=== PATIENT | male | born 2000 | race Caucasian/White ===

== ENCOUNTER 2018-03-17 22:38 | Emergency (ER) | payer OTHER ==
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
[2018-03-18 02:06] VITALS: BP 135/81; PULSE 83; RESP 18; TEMP 98.3
== END 2018-03-18 02:06 | disposition home or self-care (01) ==
LOC: EC 22:38
DX: S51.812A Laceration without foreign body of left forearm, initial encounter (principal); F17.200 Nicotine dependence, unspecified, uncomplicated; V18.0XXA Pedal cycle driver injured in noncollision transport accident in nontraffic accident, initial encounter; W25.XXXA Contact with sharp glass, initial encounter; Y93.55 Activity, bike riding; Y92.89 Other specified places as the place of occurrence of the external cause
CPT/HCPCS: 12001; 99282

== ENCOUNTER 2021-01-24 22:59 | Emergency (ER) | payer OTHER ==
--- NOTE | 2021-01-25 00:32 | ED ---
General Adult HPI - General Chief complaint: Skin/Abscess/Foreign Body Stated complaint: Urogenital Time Seen by Provider: 01/25/21 00:18 Source: patient, RN notes reviewed Mode of arrival: ambulatory Limitations: no limitations - History of Present Illness Initial comments: This is a pleasant 20-year-old transgender female comes in complaining of midli ne testicular discoloration. Patient denies any injuries. Patient states he did have a left testicular torsion back in 2019 but did not require surgery and untorsed on its own. Patient is taking estradiol and spironolactone and was started on 2 months ago to help with his transition to female. Patient has a history of appendectomy. Patient denies dysuria or penile discharge. Location: genitals Treatments Prior to Arrival: none - Related Data Home Medications Medication Instructions Recorded Confirmed No Known Home Medications 03/17/18 03/17/18 Allergies Allergy/AdvReac Type Severity Reaction Status Date / Time No Known Allergies Allergy Verified 01/24/21 23:57 Review of Systems ROS Statement: Those systems with pertinent positive or pertinent negative responses have been documented in the HPI. ROS Other: All systems not noted in ROS Statement are negative. Past Medical History Past Medical History: No Reported History History of Any Multi-Drug Resistant Organisms: None Reported Past Surgical History: Appendectomy Additional Past Surgical History / Comment(s): eye surgery Past Psychological History: No Psychological Hx Reported Smoking Status: Vaper Past Alcohol Use History: None Reported Past Drug Use History: Marijuana General Exam Limitations: no limitations General appearance: alert, in no apparent distress Head exam: Present: atraumatic, normocephalic, normal inspection Eye exam: Present: normal appearance, PERRL, EOMI. Absent: scleral icterus, conjunctival injection, periorbital swelling ENT exam: Present: normal exam, normal oropharynx, mucous membranes moist Neck exam: Present: normal inspection, full ROM. Absent: tenderness, meningismus, lymphadenopathy, thyromegaly Respiratory exam: Present: normal lung sounds bilaterally. Absent: respiratory distress, wheezes, rales, rhonchi, stridor Cardiovascular Exam: Present: regular rate, normal rhythm, normal heart sounds. Absent: systolic murmur, diastolic murmur, rubs, gallop, clicks GI/Abdominal exam: Present: soft, normal bowel sounds. Absent: distended, tenderness, guarding, rebound, rigid exam: Present: other (Darkened discoloration midline and right scrotum). Absent: testicular tenderness, urethral discharge, scrotal swelling External exam: Present: normal external exam, ecchymosis. Absent: erythema, swelling, lesions, lacerations Extremities exam: Present: normal inspection, full ROM, normal capillary refill. Absent: tenderness, pedal edema, joint swelling, calf tenderness Back exam: Present: normal inspection, full ROM. Absent: tenderness, CVA tenderness (R), CVA tenderness (L) Neurological exam: Present: alert, oriented X3, CN II-XII intact Psychiatric exam: Present: normal affect, normal mood Skin exam: Present: warm, dry, intact, normal color. Absent: rash Course Vital Signs 01/24/21 23:54 Temperature 98.3 F Pulse Rate 79 Respiratory 20 Rate Blood Pressure 105/68 O2 Sat by Pulse 98 Oximetry Medical Decision Making - Medical Decision Making Ultrasound of the scrotum shows no intrinsic testicular abnormalities and positive flow demonstrated to both testicles. Patient has no testicular pain, no dysuria, no urethral discharge. There is a positive cremasteric reflex bilaterally. Case discussed with Dr. Funes will discharge patient home. Patient to follow up with his own primary doctor in 1 week. Disposition Clinical Impression: Normal testicular exam Disposition: HOME SELF-CARE Condition: Good Instructions (If sedation given, give patient instructions): Ecchymosis (ED) Is patient prescribed a controlled substance at d/c from ED?: No Referrals: Ace Smith MD [Primary Care Provider] - 1-2 days Time of Disposition: 01:24
--- NOTE | 2021-01-25 01:14 | US ---
EXAM: US Scrotum CLINICAL HISTORY: ITS.REASON US Reason: Testicular TECHNIQUE: Real-time ultrasound of the scrotum with color Doppler and image documentation. COMPARISON: No previous studies. FINDINGS: Right testicle: Right testicle measures 4.2 x 3.0 x 2.1 cm. No intrinsic testicular abnormalities. Flow is demonstrated to both testicles. No torsion. Left testicle: Left testicle measures 4.2 x 1.9 x 2.9 cm. Epididymides: Right epididymis measures 0.9 cm. Left epididymis measures 0.9 cm. Scrotum: No hydroceles bilaterally. No varicoceles. IMPRESSION: 1. No intrinsic testicular abnormalities. 2. Flow is demonstrated to both testicles.
[2021-01-25 01:31] VITALS: BP 122/70; PULSE 91; RESP 18; TEMP 98
== END 2021-01-25 01:31 | disposition home or self-care (01) ==
LOC: EC 22:59
DX: Z76.89 Persons encountering health services in other specified circumstances (principal)
CPT/HCPCS: 76870; 93975; 99284

== ENCOUNTER 2021-04-16 10:00 | Observation (INO) | payer OTHER ==
[2021-04-16] MEDS ORDERED: ACETAMINOPHEN TAB 325 MG TAB PO STA (10:31)
--- NOTE | 2021-04-16 10:45 | ED ---
Abdominal Pain HPI - General Chief Complaint: Abdominal Pain Stated Complaint: Constipation, blood in stool Time Seen by Provider: 04/16/21 10:16 Source: patient Mode of arrival: ambulatory Limitations: no limitations - History of Present Illness Initial Comments: 20 year-old male patient presents to the emergency department for evaluation of rectal bleeding and left lower quadrant abdominal pain. Patient states that he has been constipated. He took dulcolax last night and had a large bowel movement. States afterwards he started having rectal bleeding afterwards. States it is dark red in color. 3 episodes since onset. No history of GI bleed. Hx of appendectomy. Denies fever or chills. Does not take any blood thinning medication. Patient denies any recent rash, cough, shortness of breath, chest pain, back pain, numbness, tingling, dizziness, weakness, hematuria, dysuria, urinary urgency, urinary frequency, headache, visual changes, or any other complaints. - Related Data Home Medications Medication Instructions Recorded Confirmed Estradiol [Estrace] 6 mg PO DAILY 04/16/21 04/16/21 Spironolactone 100 mg PO DAILY 04/16/21 04/16/21 Allergies Allergy/AdvReac Type Severity Reaction Status Date / Time No Known Allergies Allergy Verified 04/16/21 11:15 Review of Systems ROS Statement: Those systems with pertinent positive or pertinent negative responses have been documented in the HPI. ROS Other: All systems not noted in ROS Statement are negative. Past Medical History Past Medical History: No Reported History History of Any Multi-Drug Resistant Organisms: None Reported Past Surgical History: Appendectomy Additional Past Surgical History / Comment(s): eye surgery Past Psychological History: No Psychological Hx Reported Smoking Status: Vaper Past Alcohol Use History: None Reported Past Drug Use History: Marijuana General Exam Limitations: no limitations General appearance: alert, in no apparent distress, other (This is a well- developed, well-nourished adult male patient in no acute distress. Vital signs upon presentation are temperature 98.2F, pulse 59, respirations 16, blood pressure 110/71, pulse ox 100% on room air.) Respiratory exam: Present: normal lung sounds bilaterally. Absent: respiratory distress, wheezes, rales, rhonchi, stridor Cardiovascular Exam: Present: regular rate, normal rhythm, normal heart sounds. Absent: systolic murmur, diastolic murmur, rubs, gallop, clicks GI/Abdominal exam: Present: soft, tenderness (left lower quadrant), normal bowel sounds. Absent: distended, guarding, rebound, rigid Neurological exam: Present: alert, oriented X3, CN II-XII intact Psychiatric exam: Present: normal affect, normal mood Skin exam: Present: warm, dry, intact, normal color. Absent: rash Course Vital Signs 04/16/21 10:11 Temperature 98.2 F Pulse Rate 59 L Respiratory 16 Rate Blood Pressure 110/71 O2 Sat by Pulse 100 Oximetry Medical Decision Making - Medical Decision Making 20-year-old male patient presents to the emergency department today for evaluation of lower abdominal pain and rectal bleeding. Physical examination did reveal left lower quadrant tenderness. Labs reviewed and did reveal 12.6 white blood cell count, remainder labs are unremarkable. KUB showed a around density in the abdomen. CT of the pelvis was obtained and did show diffuse colitis from the splenic flexure to the rectum. He'll be admitted for further evaluation of colitis possible ulcerative colitis. Patient's sister does have history of UC. Patient is agreeable with this plan. We will consult GI. Dr. Doshi is accepting. Case discussed with my attending Dr. Hernandez. - Lab Data Result diagrams: 04/16/21 10:43 04/16/21 10:43 Lab Results 04/16/21 04/16/21 04/16/21 Range/Units 10:43 10:43 10:43 WBC 12.6 H (3.8-10.6) k/uL RBC 4.57 (4.30-5.90) m/uL Hgb 14.7 (13.0-17.5) gm/dL Hct 42.5 (39.0-53.0) % MCV 93.0 (80.0-100.0) fL MCH 32.2 (25.0-35.0) pg MCHC 34.6 (31.0-37.0) g/dL RDW 13.0 (11.5-15.5) % Plt Count 212 (150-450) k/uL MPV 8.5 Neutrophils % 84 % Lymphocytes % 9 % Monocytes % 5 % Eosinophils % 1 % Basophils % 0 % Neutrophils # 10.6 H (1.3-7.7) k/uL Lymphocytes # 1.1 (1.0-4.8) k/uL Monocytes # 0.7 (0-1.0) k/uL Eosinophils # 0.1 (0-0.7) k/uL Basophils # 0.0 (0-0.2) k/uL PT 10.1 (9.0-12.0) sec INR 0.9 (<1.2) APTT 23.4 (22.0-30.0) sec Sodium 138 (137-145) mmol/L Potassium 3.9 (3.5-5.1) mmol/L Chloride 108 H (98-107) mmol/L Carbon Dioxide 21 L (22-30) mmol/L Anion Gap 9 mmol/L BUN 10 (9-20) mg/dL Creatinine 0.76 (0.66-1.25) mg/dL Est GFR (CKD-EPI)AfAm >90 (>60 ml/min/1.73 sqM) Est GFR (CKD-EPI)NonAf >90 (>60 ml/min/1.73 sqM) Glucose 117 H (74-99) mg/dL Plasma Lactic Acid Jin (0.7-2.0) mmol/L Calcium 9.5 (8.4-10.2) mg/dL Total Bilirubin 0.5 (0.2-1.3) mg/dL AST 24 (17-59) U/L ALT 15 (4-49) U/L Alkaline Phosphatase 52 (38-126) U/L Total Protein 7.0 (6.3-8.2) g/dL Albumin 4.3 (3.5-5.0) g/dL 04/16/21 Range/Units 12:43 WBC (3.8-10.6) k/uL RBC (4.30-5.90) m/uL Hgb (13.0-17.5) gm/dL Hct (39.0-53.0) % MCV (80.0-100.0) fL MCH (25.0-35.0) pg MCHC (31.0-37.0) g/dL RDW (11.5-15.5) % Plt Count (150-450) k/uL MPV Neutrophils % % Lymphocytes % % Monocytes % % Eosinophils % % Basophils % % Neutrophils # (1.3-7.7) k/uL Lymphocytes # (1.0-4.8) k/uL Monocytes # (0-1.0) k/uL Eosinophils # (0-0.7) k/uL Basophils # (0-0.2) k/uL PT (9.0-12.0) sec INR (<1.2) APTT (22.0-30.0) sec Sodium (137-145) mmol/L Potassium (3.5-5.1) mmol/L Chloride (98-107) mmol/L Carbon Dioxide (22-30) mmol/L Anion Gap mmol/L BUN (9-20) mg/dL Creatinine (0.66-1.25) mg/dL Est GFR (CKD-EPI)AfAm (>60 ml/min/1.73 sqM) Est GFR (CKD-EPI)NonAf (>60 ml/min/1.73 sqM) Glucose (74-99) mg/dL Plasma Lactic Acid Jin 1.8 (0.7-2.0) mmol/L Calcium (8.4-10.2) mg/dL Total Bilirubin (0.2-1.3) mg/dL AST (17-59) U/L ALT (4-49) U/L Alkaline Phosphatase (38-126) U/L Total Protein (6.3-8.2) g/dL Albumin (3.5-5.0) g/dL - Radiology Data Radiology results: report reviewed, image reviewed KUB was obtained. It was reviewed in its entirety. Impression by Dr. Sargent shows a round density at the left paramedian mid abdomen. In absence of any left-sided renal colic or hematuria bowel contents are in position shadows instructed. No evidence for free air or bowel obstruction. No significant stool burden. CT abdomen and pelvis with contrast is obtained. Report was reviewed in its entirety. Impression by Dr. Lyn shows distal long segment colitis from splenic flexure to rectum. Differential includes infectious, inflammatory, and ischemic etiologies. Ulcerative colitis should be considered in patient of this age. Disposition Clinical Impression: Colitis, Lower GI bleed Disposition: ADMITTED IP TO THIS [facility] Condition: Serious Decision to Admit Reason: Admit from EC Decision Date: 04/16/21 Decision Time: 12:52
[2021-04-16 10:58] LABS: Basophils % (A) 0 %; Eosinophils # (A) 0.1 k/uL (0-0.7); Eosinophils % (A) 1 %; HCT 42.5 % (39.0-53.0); HGB 14.7 gm/dL (13.0-17.5); Lymphocytes # (A) 1.1 k/uL (1.0-4.8); Lymphocytes % (A) 9 %; MCH 32.2 pg (25.0-35.0); MCHC 34.6 g/dL (31.0-37.0); Mean Platelet Volume 8.5; Monocytes # (A) 0.7 k/uL (0-1.0); Monocytes % (A) 5 %; Neutrophils # (A) 10.6 k/uL (1.3-7.7); Neutrophils % (A) 84 %; Platelet Count 212 k/uL (150-450); RBC 4.57 m/uL (4.30-5.90); WBC 12.6 k/uL (3.8-10.6)
[2021-04-16 11:05] LABS: INR 0.9 (<1.2); Partial Thromboplastin Time 23.4 sec (22.0-30.0); Prothrombin Time 10.1 sec (9.0-12.0)
--- NOTE | 2021-04-16 11:11 | XR ---
EXAMINATION TYPE: XR KUB DATE OF EXAM: 04/16/2021 Comparison: None Clinical History: 20-year-old male with abdominal pain Findings: Lung bases are clear. No evidence for free intraperitoneal air. No dilated small bowel or air-fluid levels. There is a vague round density left paramedian mid abdomen. No significant stool burden. Impression: 1. A subtle round density within the left paramedian mid abdomen. In the absence of any left-sided re nal colic or hematuria, bowel content or superimposition shadow is suspected. Correlate clinically to exclude the possibility of a renal calculus. 2. No evidence for free air or bowel obstruction. No significant stool burden.
[2021-04-16 11:13] LABS: ALT 15 U/L (4-49); AST 24 U/L (17-59); African American GFR (CKD) >90 (>60 ml/min/1.73 sqM); Albumin 4.3 g/dL (3.5-5.0); Alkaline Phosphatase 52 U/L (38-126); Anion Gap 9 mmol/L; Blood Urea Nitrogen 10 mg/dL (9-20); Calcium 9.5 mg/dL (8.4-10.2); Carbon Dioxide 21 mmol/L (22-30); Chloride 108 mmol/L (98-107); Glucose 117 mg/dL (74-99); Non-African American GFR(CKD) >90 (>60 ml/min/1.73 sqM); Potassium 3.9 mmol/L (3.5-5.1); Sodium 138 mmol/L (137-145); Total Bilirubin 0.5 mg/dL (0.2-1.3)
--- NOTE | 2021-04-16 12:04 | CT ---
EXAMINATION TYPE: CT abdomen pelvis w con DATE OF EXAM: 04/16/2021 COMPARISON: None. HISTORY: bloody stool, constipation CT DLP: 567 mGycm, Automated Exposure Control for Dose Reduction was Utilized. CONTRAST: CT scan of the abdomen and pelvis is performed without oral but with IV Contrast, patient injected wi th 100 mL of Isovue 300. FINDINGS: LUNG BASES: No significant abnormality is appreciated. LIVER/GB: Mild hepatomegaly. PANCREAS: No significant abnormality is seen. SPLEEN: No significant abnormality is seen. ADRENALS: No significant abnormality is seen. KIDNEYS: No significant abnormality is seen. BOWEL: Evaluation bowel suboptimal due to lack of enteric contrast and patient having little intra-ab dominal fat. No suspicious small large bowel dilatation. Moderate to severe wall thickening left colo n greatest near junction of sigmoid colon. Mild to moderate wall thickening in sigmoid colon to rectu m. No free air. No well-formed fluid collection or abscess. PROSTATE/SEMINAL VESICLES: No gross abnormality seen. LYMPH NODES: No greater than 1cm abdominal or pelvic lymph nodes are appreciated. OSSEOUS STRUCTURES: No significant abnormality is seen. OTHER: No significant additional abnormality is seen. IMPRESSION: Distal long segment colitis from splenic flexure to rectum. Differential includes infecti ous, inflammatory, and ischemic etiologies. Ulcerative colitis should be considered in patient of thi s age.
[2021-04-16] MEDS ORDERED: NALOXONE 0.4 MG/ML 1 ML VIAL IV PRN (12:51)
[2021-04-16] MEDS ORDERED: ONDANSETRON 4 MG/2 ML VIAL IVP PRN (13:21)
[2021-04-16] MEDS ORDERED: ACETAMINOPHEN TAB 325 MG TAB PO PRN (13:21)
[2021-04-16] MEDS ORDERED: MORPHINE SULFATE 2 MG/ML SYRINGE IVP PRN (13:21)
--- NOTE | 2021-04-16 13:22 | P.HPIM ---
History of Present Illness H&P Date: 04/16/21 Chief Complaint: Abdominal pain This is a 20-year-old male to female transgender patient that presented to the emergency room with worsening abdominal pain and bloody bowel movement. Patient said that he was having problems with constipation for the past couple of days and yesterday he took a stool softener and subsequently started having she stools that was mixed with bright red blood. He is also describing generalized abdominal pain that he rates as 6 out of 10 in severity but occasionally get worse. Patient denies any nausea or vomiting. Patient said that he usually does not have any problems with his bowel movement and denies any bloody bowel movement in the past. Patient was evaluated in the emergency room and computed tomography scan of the abdomen and pelvis showed evidence of colitis extending from the splenic flexure to the rectum. Patient was never diagnosed with IBD that his sister is known to have ulcerative colitis. He will be admitted to the hospital for further management Review of Systems Review of system: 14 points review of systems were obtained and were negative except to what were mentioned in the HPI. Past Medical History Past Medical History: No Reported History History of Any Multi-Drug Resistant Organisms: None Reported Past Surgical History: Appendectomy Additional Past Surgical History / Comment(s): eye surgery Past Psychological History: No Psychological Hx Reported Smoking Status: Vaper Past Alcohol Use History: None Reported Past Drug Use History: Marijuana Medications and Allergies Home Medications Medication Instructions Recorded Confirmed Type Estradiol [Estrace] 6 mg PO DAILY 04/16/21 04/16/21 History Spironolactone 100 mg PO DAILY 04/16/21 04/16/21 History Allergies Allergy/AdvReac Type Severity Reaction Status Date / Time No Known Allergies Allergy Verified 04/16/21 11:15 Physical Exam Vitals: Vital Signs Temp Pulse Resp BP Pulse Ox 04/16/21 10:11 98.2 F 59 L 16 110/71 100 Intake and Output 04/15/21 04/16/21 04/16/21 22:59 06:59 14:59 Other: Weight 66.134 kg General: The patient is awake and alert, in no distress Eye: there is normal conjunctiva bilaterally. Neck: The neck is supple, there is no JVD. Cardiovascular: Normal S1-S2, no S3-S4, no murmurs. Respiratory: Lungs clear to auscultation bilaterally Gastrointestinal: Abdomen is soft, there is mild tenderness to palpation Musculoskeletal: There is no pedal edema. Neurological:. Speech is normal. Skin: Skin is warm and dry Results CBC & Chem 7: 04/16/21 10:43 04/16/21 10:43 Labs: Abnormal Lab Results - Last 24 Hours (Table) 04/16/21 04/16/21 Range/Units 10:43 10:43 WBC 12.6 H (3.8-10.6) k/uL Neutrophils # 10.6 H (1.3-7.7) k/uL Chloride 108 H (98-107) mmol/L Carbon Dioxide 21 L (22-30) mmol/L Glucose 117 H (74-99) mg/dL Assessment and Plan Assessment: 1. Worsening abdominal pain with bloody diarrhea 2. Acute colitis: Suspected IBD with evidence of colitis extending from the splenic flexure to the rectum noted on computed tomography scan 3. Male to female transgender patient Today, I reviewed his medication list and lab work results. I would obtain CRP, ESR, and lactic acid for further evaluation. GI consulted as well. I would hold off starting any IV steroids at this time. Symptomatic management with pain control and anti-emetic as needed. Continue IV fluid hydration. Clear liquid diet for now.
[2021-04-17 06:36] LABS: African American GFR (CKD) >90 (>60 ml/min/1.73 sqM); Anion Gap 11 mmol/L; Blood Urea Nitrogen 10 mg/dL (9-20); Carbon Dioxide 25 mmol/L (22-30); Chloride 102 mmol/L (98-107); Glucose 94 mg/dL (74-99); Non-African American GFR(CKD) >90 (>60 ml/min/1.73 sqM); Potassium 4.4 mmol/L (3.5-5.1); Sodium 138 mmol/L (137-145)
[2021-04-17] MEDS: SPIRONOLACTONE 25 MG TAB PO SCH (08:49)
[2021-04-17] MEDS: PANTOPRAZOLE 40 MG/10 ML VIAL IVP SCH (08:53)
[2021-04-17 09:51] LABS: Basophils # (A) 0.03 X 10*3/uL (0.00-0.10); Basophils % (A) 0.4 %; Eosinophils % (A) 2.6 %; HCT 47.2 % (39.6-50.0); HGB 15.3 g/dL (13.0-17.0); Lymphocytes # (A) 1.75 X 10*3/uL (0.90-5.00); Lymphocytes % (A) 22.7 %; MCH 30.7 pg (27.0-32.0); MCHC 32.4 g/dL (32.0-37.0); MCV 94.8 fL (80.0-97.0); Mean Platelet Volume 11.2 fL (9.5-12.2); Monocytes % (A) 6.5 %; Neutrophils % (A) 67.4 %; Platelet Count 235 X 10*3/uL (140-440); RBC 4.98 X 10*6/uL (4.40-5.60); RDW 12.4 % (11.5-14.5); WBC 7.71 X 10*3/uL (4.50-10.00)
--- NOTE | 2021-04-17 13:07 | P.PN ---
Subjective Progress Note Date: 04/17/21 Patient is complaining of abdominal pain that he said it's unchanged compared to yesterday. He appeared comfortable when I saw him. No further episode of diarrhea or bloody stools since admission. He is tolerating liquid diet with no difficulty. Objective - Vital Signs Vital signs: Vital Signs Temp 97.4 F L 04/17/21 07:31 Pulse 52 L 04/17/21 07:31 Resp 18 04/17/21 08:00 BP 110/71 04/17/21 07:31 Pulse Ox 100 04/17/21 07:31 Intake & Output 04/16/21 04/17/21 04/17/21 18:59 06:59 18:59 Weight 66.134 kg Other: Voiding Method Toilet Toilet # Voids 2 2 2 - Exam General: The patient is awake and alert, in no distress Eye: there is normal conjunctiva bilaterally. Neck: The neck is supple, there is no JVD. Cardiovascular: Normal S1-S2, no S3-S4, no murmurs. Respiratory: Lungs clear to auscultation bilaterally Gastrointestinal: Abdomen is soft, nontender Musculoskeletal: There is no pedal edema. Neurological:. Speech is normal. Skin: Skin is warm and dry - Labs CBC & Chem 7: 04/17/21 05:46 04/17/21 05:46 Assessment and Plan Assessment: This is a 20-year-old male to female transgender patient that presented to the emergency room with worsening abdominal pain and bloody diarrhea. Patient was evaluated in the ER and admitted to the hospital for further management of medical problems noted below. 1. Acute colitis: Suspected IBD on presentation with evidence of colitis extending from the splenic flexure to the rectum noted on computed tomography scan. CRP and ESR are normal. Awaiting GI evaluation. 2. Male to female transgender patient: Continue home medications Today, I reviewed his medication list and lab work results. Symptomatic management with pain control and anti-emetic as needed.
--- NOTE | 2021-04-17 15:28 | P.CONS ---
History of Present Illness - Reason for Consult Consult date: 04/17/21 GI bleed, colitis Requesting physician: Tiffany Haji - Chief Complaint Abdominal pain, rectal bleeding - History of Present Illness This is a 20 year old patient who presented to the emergency department pain and rectal bleeding. Patient states he has actually had symptoms of abdominal cramping, constipation mixed with diarrhea for over the last one years duration. However yesterday woke up in the middle of the night with bad cramps along his lower abdomen and thought he had to have a bowel movement however he was unable to. The patient later took a Dulcolax and continued to have a dull achy pain throughout abdomen, then had some loose stool which then turned into bloody dark red mixed in his stool and seen in the toilet. Denies any previous rectal ble eding or blood in his stool before. Not on any anticoagulation. Currently is taking hormone replacement therapy as treatment, transitioning gender. No reported bowel movements or rectal bleeding since coming to the hospital. States still having some left lower quadrant discomfort. Denies any nausea or vomiting, denies any fever. No recent travel or sick contacts. The patient's sister does have a diagnosis of ulcerative colitis. No previous history of similar symptoms. No previous EGD or colonoscopy. On presentation to the emergency department had mild leukocytosis with a WBC of 12.7. Today's repeat labs WBC 7, hemoglobin 15, hematocrit 47, platelet count 235,000, total bilirubin 0.5, alkaline phosphatase 52, AST 24, ALT 15. CT of abdomen and pelvis showed distal long segment colitis from splenic flexure to rectum. Differential include infectious, inflammatory, and ischemic etiologies. Ulcerative colitis should be considered and patient of this age. Review of Systems REVIEW OF SYSTEMS: CARDIOPULMONARY: No chest pain or shortness of breath. Gastrointestinal: Abdominal cramping. No nausea or vomiting. No hematemesis, coffee-ground emesis. Rectal bleeding, diarrhea. GENITOURINARY: No dysuria or hematuria. MUSCULOSKELETAL: Reports normal range of motion., Joint pain. SKIN: No rashes. No jaundice. ENDOCRINE: No chills, fevers. No excessive weight gain or loss. No polydipsia or polyuria. PSYCHIATRIC: Unremarkable. NEUROLOGY: No change in mental status. Denies dizziness, headache. ENT: Vision unremarkable. CONSTITUTIONAL: No recent weight loss. No fever, chills, night sweats. Past Medical History Past Medical History: No Reported History History of Any Multi-Drug Resistant Organisms: None Reported Past Surgical History: Appendectomy Additional Past Surgical History / Comment(s): eye surgery Past Psychological History: No Psychological Hx Reported Smoking Status: Vaper Past Alcohol Use History: None Reported Past Drug Use History: Marijuana - Past Family History Sister(s) Family Medical History: GERD/Reflux, GI Bleed Additional Family Medical History / Comment(s): Colits and cystic fibrosis and endometriosis. Medications and Allergies Home Medications Medication Instructions Recorded Confirmed Type Estradiol [Estrace] 6 mg PO DAILY 04/16/21 04/16/21 History Spironolactone 100 mg PO DAILY 04/16/21 04/16/21 History Allergies Allergy/AdvReac Type Severity Reaction Status Date / Time No Known Allergies Allergy Verified 04/16/21 11:15 Physical Exam Vitals: Vital Signs Temp Pulse Pulse Pulse Resp BP BP 04/17/21 07:31 97.4 F L 52 L 17 110/71 04/17/21 03:09 98.2 F 58 L 14 111/65 04/17/21 00:09 67 16 04/16/21 19:08 97.8 F 67 16 108/60 04/16/21 19:00 67 16 04/16/21 14:00 75 18 113/76 04/16/21 13:28 98.6 F 70 17 04/16/21 10:11 98.2 F 59 L 16 110/71 Pulse Ox 04/17/21 07:31 100 04/17/21 03:09 100 04/17/21 00:09 04/16/21 19:08 100 04/16/21 19:00 04/16/21 14:00 100 04/16/21 13:28 96 04/16/21 10:11 100 Intake and Output 04/16/21 04/17/21 04/17/21 22:59 06:59 14:59 Other: Voiding Method Toilet Toilet # Voids 1 2 General appearance: The patient is alert, oriented, appears in no acute distress. HET: Head is normocephalic and atraumatic. Conjunctiva pink. Sclera anicteric. Neck: Supple without lymphadenopathy. Trachea midline. Heart: S1 S2. Regular rate and rhythm. Lungs: Clear to auscultation. Abdomen: Soft, lower quadrant tenderness, nondistended with bowel sounds. No guarding or rigidity. Skin: No rashes. No jaundice. Extremities: Normal skin color and turgor. No pedal edema. Neurological: No focal deficits. Alert and oriented 3.. Results CBC & Chem 7: 04/17/21 05:46 04/17/21 05:46 Labs: Abnormal Lab Results - Last 24 Hours (Table) 04/16/21 04/16/21 Range/Units 10:43 10:43 WBC 12.6 H (3.8-10.6) k/uL Neutrophils # 10.6 H (1.3-7.7) k/uL Chloride 108 H (98-107) mmol/L Carbon Dioxide 21 L (22-30) mmol/L Glucose 117 H (74-99) mg/dL CT scan - abdomen: image reviewed (Distal long segment colitis from splenic flexure to rectum. Differential includes infectious, inflammatory, and ischemic etiologies. Ulcerative colitis should be considered in patient of this age.) Assessment and Plan (1) Colitis Narrative/Plan: 20-year-old patient who presented to the emergency department with complaints of severe abdominal cramping associated with dark red blood in stool and rectal bleeding. Patient states symptoms of constipation/diarrhea and abdominal cramping has been going on for the last 1 year duration. This is the first time of having any blood in the stool or rectal bleeding. No associated nausea or vomiting. No recent travel, antibiotic use, or sick contacts. Patient's sister does have history of ulcerative colitis. No previous EGD or colonoscopy. Afebrile, initially had mild gross cytosis on admission however normal now. Hemoglobin stable at 15. Possible etiologies include infectious, ischemic, or inflammatory. Need to consider possibility of ulcerative colitis especially with a family history. At this time will treat empirically with antibiotics and recommend colonoscopy. Offered to patient that Gen. surgery see patient for possible colonoscopy during this hospitalization as there will be no Urge with gastroenterology this weekend. Patient states like to be discharged if possible and is ready to go as no further symptoms. Recommend outpatient colonoscopy in 3-4 weeks. Current Visit: Yes Status: Acute Code(s): K52.9 - NONINFECTIVE GASTROENTERITIS AND COLITIS, UNSPECIFIED SNOMED Code(s): 42049663 (2) Abdominal pain Current Visit: Yes Status: Acute Code(s): R10.9 - UNSPECIFIED ABDOMINAL PAIN SNOMED Code(s): 98329249 (3) Lower GI bleed Current Visit: Yes Status: Acute Code(s): K92.2 - GASTROINTESTINAL HEMORRHAGE, UNSPECIFIED SNOMED Code(s): 47132439 Plan: 1. Advance to full liquid diet 2. Will start on oral Cipro and Flagyl 3. Discussed with patient that colonoscopy is recommended, as patient's symptom s have improved and has had no further bleeding it would be reasonable to have outpatient colonoscopy in the next 3-4 weeks. However symptoms return there is no gastroenterology coverage this weekend, and may need to consider general surgery consult if warranted by primary medicine. Thank you for allowing us to participate in the care of the patient, the GI service will sign off, gastroenterology will not be available at the hospital this weekend and if further evaluation by gastroenterology is required the patient will need transfer as per the primary team's discretion. Dr. Sanders I agree with the dictator's note, documented as a scribe by Cheryl Chang.
[2021-04-17] MEDS: CIPROFLOXACIN HCL 500 MG TAB PO SCH ×2 (17:00→23:42)
[2021-04-17] MEDS: metroNIDAZOLE 500 MG TAB PO SCH ×2 (17:07→23:42)
[2021-04-18 07:31] VITALS: BP 97/62; RESP 17; TEMP 98.3
[2021-04-18] MEDS: PANTOPRAZOLE 40 MG/10 ML VIAL IVP SCH (08:50)
[2021-04-18] MEDS: SPIRONOLACTONE 25 MG TAB PO SCH (08:50)
[2021-04-18] MEDS: metroNIDAZOLE 500 MG TAB PO SCH (08:51)
[2021-04-18] MEDS: CIPROFLOXACIN HCL 500 MG TAB PO SCH (08:51)
[2021-04-18 09:36] VITALS: PULSE 55
--- NOTE | 2021-04-18 12:26 | P.DS ---
Providers Date of admission: 04/16/21 12:59 Expected date of discharge: 04/18/21 Attending physician: Rachel Doshi Consults: 04/16/21 12:51 Consult Physician Routine Consulting Provider: Antonio Sanders Consult Reason/Comments: GI bleed; colitis Do you want consulting provider notified?: Yes Primary care physician: Stated None Hospital Course: This is a 20-year-old male to female transgender patient that presented to the emergency room with worsening abdominal pain and bloody diarrhea. Patient was evaluated in the ER and admitted to the hospital for further management of medical problems noted below. 1. Acute colitis: Suspected IBD on presentation with evidence of colitis extending from the splenic flexure to the rectum noted on computed tomography scan. CRP and ESR are normal. Patient was seen and evaluated by GI. Plan for colonoscopy outpatient in 4-6 weeks. We finish 7 days course of antibiotic with Cipro and Flagyl. 2. Male to female transgender patient: Continue home medications Patient was seen and evaluated by me on the day of discharge. He denies any abdominal pain. No bowel movement since admission. Abdomen is soft and nontender. Patient would be discharged home in a stable condition. Follow-up with GI as directed for outpatient colonoscopy. Patient Condition at Discharge: Fair Plan - Discharge Summary Discharge Rx Participant: No New Discharge Prescriptions: New Ciprofloxacin HCl [Cipro] 500 mg PO BID #12 tab metroNIDAZOLE [Flagyl] 500 mg PO TID #18 tab Continue Spironolactone 100 mg PO DAILY Estradiol [Estrace] 6 mg PO DAILY Discharge Medication List Estradiol [Estrace] 6 mg PO DAILY 04/16/21 [History] Spironolactone 100 mg PO DAILY 04/16/21 [History] Ciprofloxacin HCl [Cipro] 500 mg PO BID #12 tab 04/18/21 [Rx] metroNIDAZOLE [Flagyl] 500 mg PO TID #18 tab 04/18/21 [Rx] Follow up Appointment(s)/Referral(s): Esther Belcher MD [STAFF PHYSICIAN] - 1 Week (Call office for outpatient colonoscopy on Tuesday) None,Stated [Primary Care Provider] - 1-2 days Patient Instructions/Handouts: Rectal Bleeding (DC) Discharge/Stand Alone Forms: Work/School Release Discharge Disposition: HOME SELF-CARE
== END 2021-04-18 12:21 | disposition home or self-care (01) ==
LOC: EC 10:00 → 6NMEDSUR 12:59 → 4SSUR 13:51
PROVIDERS: ADMIT Internal Medicine; ATTEND Internal Medicine
DX: K52.9 Noninfective gastroenteritis and colitis, unspecified (principal); F64.9 Gender identity disorder, unspecified; K59.00 Constipation, unspecified; Z79.890 Hormone replacement therapy; Z90.49 Acquired absence of other specified parts of digestive tract; F17.290 Nicotine dependence, other tobacco product, uncomplicated; Z86.59 Personal history of other mental and behavioral disorders; Z83.79 Family history of other diseases of the digestive system; Z83.2 Family history of diseases of the blood and blood-forming organs and certain disorders involving the immune mechanism
CPT/HCPCS: 99285; 96376; 96374; 36415; 80053; 80048; 85652; 83605; 85025 ×2; 85610; 85730; 86140; 74018; 74177; G0378 ×4; C9113 ×2; Q9967

== ENCOUNTER 2021-11-19 18:30 | Emergency (ER) | payer OTHER ==
[2021-11-19 19:01] VITALS: RESP 18
--- NOTE | 2021-11-19 22:48 | ED ---
Psych HPI - General Chief Complaint: Psychiatric Symptoms Stated Complaint: Mental Health Time Seen by Provider: 11/19/21 21:41 Source: patient, RN notes reviewed, old records reviewed Mode of arrival: ambulatory Limitations: no limitations - History of Present Illness Initial Comments: This is a 21-year-old male to the emergency department today. Patient presents today for evaluation regards to psychiatric illness, depression. No drugs or alcohol abuse. Patient does admit to been cutting her groin MD Complaint: feels depressed -: hour(s) Associated Psychiatric Symptoms: depression History of same: Yes Quality: constant, intermittent Improves With: none Worsens With: none Context: significant life stressor Associated Symptoms: denies other symptoms Treatments Prior to Arrival: placed on mental health hold If Self Harm: admits thoughts of self harm - Related Data Home Medications Medication Instructions Recorded Confirmed Spironolactone 100 mg PO DAILY 04/16/21 11/24/21 estradioL [estradioL (Twice 2 patch TRANSDERM WESA 11/19/21 11/24/21 Weekly) 0.1 mg Patch] Previous Rx's Medication Instructions Recorded Bacitracin Zinc/Polymyxin B 1 applic TOPICAL BID #1 gm 11/27/21 [Bacitracin-Polymyxin Ointment] Nicotine 14Mg/24Hr Patch [Habitrol] 1 patch TRANSDERM DAILY 14 Days 11/27/21 patch busPIRone HCl [Buspar] 10 mg PO BID 30 Days tab 11/27/21 lamoTRIgine [LaMICtal] 50 mg PO BID 30 Days tab 11/27/21 traZODone HCL [Desyrel] 100 mg PO HS 30 Days tab 11/27/21 Allergies Allergy/AdvReac Type Severity Reaction Status Date / Time No Known Allergies Allergy Verified 11/24/21 13:56 Review of Systems ROS Statement: Those systems with pertinent positive or pertinent negative responses have been documented in the HPI. ROS Other: All systems not noted in ROS Statement are negative. Past Medical History Past Medical History: No Reported History History of Any Multi-Drug Resistant Organisms: None Reported Past Surgical History: Appendectomy Additional Past Surgical History / Comment(s): eye surgery Past Psychological History: Anxiety, Depression Smoking Status: Vaper Past Alcohol Use History: None Reported Past Drug Use History: Marijuana - Past Family History Sister(s) Family Medical History: GERD/Reflux, GI Bleed Additional Family Medical History / Comment(s): Colits and cystic fibrosis and endometriosis. General Exam Limitations: no limitations General appearance: alert, in no apparent distress Head exam: Present: atraumatic, normocephalic, normal inspection Eye exam: Present: normal appearance, PERRL, EOMI. Absent: scleral icterus, conjunctival injection, periorbital swelling ENT exam: Present: normal exam, mucous membranes moist Neck exam: Present: normal inspection. Absent: tenderness, meningismus, lymphadenopathy Respiratory exam: Present: normal lung sounds bilaterally. Absent: respiratory distress, wheezes, rales, rhonchi, stridor Cardiovascular Exam: Present: regular rate, normal rhythm, normal heart sounds. Absent: systolic murmur, diastolic murmur, rubs, gallop, clicks GI/Abdominal exam: Present: soft, normal bowel sounds. Absent: distended, tenderness, guarding, rebound, rigid Extremities exam: Present: normal inspection, full ROM, normal capillary refill. Absent: tenderness, pedal edema, joint swelling, calf tenderness Back exam: Present: normal inspection Neurological exam: Present: alert, oriented X3, CN II-XII intact Psychiatric exam: Present: normal affect, normal mood Skin exam: Present: warm, dry, intact, normal color. Absent: rash Course Vital Signs 11/19/21 11/20/21 18:57 01:58 Temperature 98.1 F 98.5 F Pulse Rate 103 H 74 Respiratory 18 18 Rate Blood Pressure 114/78 127/81 O2 Sat by Pulse 99 98 Oximetry - Reevaluation(s) Reevaluation #1: 11/19/2021 Medical record is reviewed medical clear for psychiatric evaluation Medical Decision Making - Medical Decision Making 21 male to the emergency department for psychiatric evaluation. Patient does have some self cutting a superficial. Patient is depressed and can be discharged home Disposition Clinical Impression: Depression Disposition: HOME SELF-CARE Condition: Fair Instructions (If sedation given, give patient instructions): Depression (ED) Is patient prescribed a controlled substance at d/c from ED?: No Referrals: Jenelle Dacosta MD [Primary Care Provider] - 1-2 days
[2021-11-20 01:59] VITALS: BP 127/81; PULSE 74; TEMP 98.5
== END 2021-11-20 01:59 | disposition home or self-care (01) ==
LOC: EC 18:30
DX: F32.A Depression, unspecified (principal); F17.290 Nicotine dependence, other tobacco product, uncomplicated
CPT/HCPCS: 82075; 99283

== ENCOUNTER 2021-11-24 12:29 | Inpatient (IN) | payer MEDICAID, OTHER ==
--- NOTE | 2021-11-24 13:32 | ED ---
General Adult HPI - General Chief complaint: Psychiatric Symptoms Stated complaint: Mental health Time Seen by Provider: 11/24/21 13:01 Source: patient, RN notes reviewed, old records reviewed Mode of arrival: ambulatory Limitations: no limitations - History of Present Illness Initial comments: Patient is a 21-year-old male transitioning to female because by is a who presents emergency Department following a suicide attempt last week. Patient was evaluated by a physician in the emergency department last week, and ultimately discharged home. Patient states that he then used a knife to cut his right thigh as well as his right groin. He states he considered cutting his right femoral artery or vein. Denies succeeding in doing so. Was seen by his psychiatrist at [facility] today, and sent over to the emergency department for evaluation, likely requiring admission. States he is on Zoloft but states it doesn't seem to be helping. Endorses a lot of stress lately. Denies any homicidal ideations, attempts. Denies any visual or auditory hallucinations. Has no other acute complaints at this time. The wound did bleed some last week but it stopped on its own. Denies any sensory deficits in the right leg. Is able to ambulate without difficulty. No other acute complaints at this time. - Related Data Home Medications Medication Instructions Recorded Confirmed Spironolactone 100 mg PO DAILY 04/16/21 11/24/21 Sertraline [Zoloft] 50 mg PO HS 11/19/21 11/24/21 estradioL [estradioL (Twice 2 patch TRANSDERM WESA 11/19/21 11/24/21 Weekly) 0.1 mg Patch] Allergies Allergy/AdvReac Type Severity Reaction Status Date / Time No Known Allergies Allergy Verified 11/24/21 13:56 Review of Systems ROS Statement: Those systems with pertinent positive or pertinent negative responses have been documented in the HPI. Review of Systems: CONST: Denies fever EYES: Denies blurry vision ENT: Denies nasal congestion C/V: Denies Chest pain RESP: Denies shortness of breath GI: Denies abdominal pain : Denies dysuria SKIN: Endorses superficial lacerations to the right thigh MSK: Denies joint pain. NEURO: Denies headache PSYCH: Denies homicidal ideations/plans/attempts. Denies visual or auditory hallucinations. He endorses suicidal ideations, plans, temp last week with an X-Acto knife. ROS Other: All systems not noted in ROS Statement are negative. Past Medical History Past Medical History: No Reported History History of Any Multi-Drug Resistant Organisms: None Reported Past Surgical History: Appendectomy Additional Past Surgical History / Comment(s): eye surgery Past Psychological History: Anxiety, Depression Smoking Status: Vaper Past Alcohol Use History: None Reported Past Drug Use History: Marijuana - Past Family History Sister(s) Family Medical History: GERD/Reflux, GI Bleed Additional Family Medical History / Comment(s): Colits and cystic fibrosis and endometriosis. General Exam - General Exam Comments Initial Comments: General: Appears in no acute distress. HEAD: Normal with no signs of head trauma. EYES: PERRLA, EOMI, conjunctiva normal, no discharge. ENT: Hearing grossly intact, normal oropharynx. RESPIRATORY: Clear breath sounds bilaterally. No wheezes, rales, or rhonchi. C/V: Regular rate and rhythm. S1 and S2 auscultated, no edema, peripheral pulses 2+ and intact throughout ABD: Abd is soft, nontender, nondistended EXT: Normal range of motion, no obvious deformity SKIN: Superficial lacerations to the anterior right thigh and very stages of healing. It self attempts at injuring. Patient also has a simple laceration located in the right groin. Good 2+ femoral pulse as well as distal PT and DP pulses in the right leg. NEURO: Alert and oriented x 4. Cranial nerves II-XII intact. No focal sensory or strength deficits. Able to ambulate without difficulty. Limitations: no limitations Course Vital Signs 11/24/21 12:40 Temperature 98.2 F Pulse Rate 96 Respiratory 18 Rate Blood Pressure 113/76 O2 Sat by Pulse 98 Oximetry Medical Decision Making - Medical Decision Making Based on the patient's presentation and physical exam, I believe the patient requires psychiatric evaluation. She is having suicidal ideations as well as an attempt last week. She was sent from [facility] for evaluation and I suspect admission. I do not believe that the patient requires any laboratory studies or imaging at this time, but we will obtain a PSA screening BAT as well as drug screen. BAT is 0. Drug screen is pending. Patient is medically cleared for evaluation by psychiatry at this time. Suicide precautions as well as constant sitter are ordered. Patient is medically cleared at this time. Disposition is pending psychiatric evaluation. EPS is notified.Patient's UDS revealed marijuana. Covid is negative. Psychiatry evaluated the patient and determined that the patient needs inpatient psychiatric criteria. Patient was therefore admitted in stable condition to inpatient psychiatry. - Lab Data Lab Results 11/24/21 11/24/21 Range/Units 13:20 13:29 Urine Opiates Screen Not Detected (NotDetected) Ur Oxycodone Screen Not Detected (NotDetected) Urine Methadone Screen Not Detected (NotDetected) Ur Propoxyphene Screen Not Detected (NotDetected) Ur Barbiturates Screen Not Detected (NotDetected) U Tricyclic Antidepress Not Detected (NotDetected) Ur Phencyclidine Scrn Not Detected (NotDetected) Ur Amphetamines Screen Not Detected (NotDetected) U Methamphetamines Scrn Not Detected (NotDetected) U Benzodiazepines Scrn Not Detected (NotDetected) Urine Cocaine Screen Not Detected (NotDetected) U Marijuana (THC) Screen Detected H (NotDetected) Coronavirus (PCR) Not Detected (Not Detectd) Disposition Clinical Impression: Suicidal ideation, Encounter for psychiatric assessment Disposition: ADMITTED IP TO THIS [facility] Condition: Stable Referrals: Jenelle Dacosta MD [Primary Care Provider] - 1-2 days
[2021-11-24 14:15] LABS: Amphetamine Screen,Urine Not Detected (NotDetected); Barbiturate Screen,Urine Not Detected (NotDetected); Benzodiazepines Screen,Urine Not Detected (NotDetected); Cocaine Screen,Urine Not Detected (NotDetected); Methadone Screen, Urine Not Detected (NotDetected); Opiate Screen,Urine Not Detected (NotDetected); Oxycodone Screen, Urine Not Detected (NotDetected); Phencyclidine Screen,Urine Not Detected (NotDetected); Tricyclic Antidepressant,Urine Not Detected (NotDetected); Urn Cannabinoid Scrn Detected (NotDetected)
[2021-11-24] MEDS ORDERED: MAGNESIUM HYDROXIDE 2,400 MG/10 ML CUP PO PRN (21:16)
[2021-11-24] MEDS ORDERED: MAG HYDROX/AL HYDROX/SIMETH 30 ML CUP PO PRN (21:16)
[2021-11-24] MEDS ORDERED: HALOPERIDOL LACTATE 5 MG/ML 1 ML VIAL IM PRN (21:16)
[2021-11-24] MEDS ORDERED: ACETAMINOPHEN TAB 325 MG TAB PO PRN (21:16)
[2021-11-24] MEDS ORDERED: LORazepam 2 MG/ML INJ IM PRN (21:20)
[2021-11-24] MEDS ORDERED: haloperidoL 5 MG TAB PO PRN (21:20)
[2021-11-24 21:57] LABS: Appearance,Urine Clear (Clear); Bilirubin,Urine Negative (Negative); Blood,Urine Negative (Negative); Color,Urine Yellow; Glucose,Urine (UA) Negative (Negative); Ketones,Urine Negative (Negative); Leukocyte Esterase,Urine Negative (Negative); Nitrite,Urine Negative (Negative); Protein,Urine Negative (Negative); Specific Gravity,Urine 1.018 (1.001-1.035)
[2021-11-24] MEDS: LORazepam 1 MG TAB PO PRN (23:22)
[2021-11-25] MEDS: NICOTINE 14MG/24HR PATCH TRANSDERM SCH (08:48)
[2021-11-25] MEDS: SPIRONOLACTONE 25 MG TAB PO SCH (08:49)
[2021-11-25] MEDS ORDERED: ESTRADIOL TRANSDERM SCH (09:00)
[2021-11-25 10:35] LABS: Basophils % (A) 0 %; Eosinophils # (A) 0.2 k/uL (0-0.7); Eosinophils % (A) 3 %; HCT 46.5 % (39.0-53.0); HGB 15.2 gm/dL (13.0-17.5); Lymphocytes # (A) 1.2 k/uL (1.0-4.8); Lymphocytes % (A) 19 %; MCH 30.6 pg (25.0-35.0); MCHC 32.7 g/dL (31.0-37.0); MCV 93.4 fL (80.0-100.0); Mean Platelet Volume 8.7; Monocytes # (A) 0.4 k/uL (0-1.0); Monocytes % (A) 6 %; Neutrophils # (A) 4.5 k/uL (1.3-7.7); Neutrophils % (A) 70 %; Platelet Count 213 k/uL (150-450); RBC 4.98 m/uL (4.30-5.90); WBC 6.4 k/uL (3.8-10.6)
[2021-11-25 10:53] LABS: ALT 13 U/L (4-49); AST 22 U/L (17-59); African American GFR (CKD) >90 (>60 ml/min/1.73 sqM); Albumin 4.7 g/dL (3.5-5.0); Alkaline Phosphatase 57 U/L (38-126); Anion Gap 9 mmol/L; Blood Urea Nitrogen 12 mg/dL (9-20); Calcium 9.9 mg/dL (8.4-10.2); Carbon Dioxide 28 mmol/L (22-30); Chloride 103 mmol/L (98-107); Non-African American GFR(CKD) >90 (>60 ml/min/1.73 sqM); Potassium 4.1 mmol/L (3.5-5.1); Sodium 140 mmol/L (137-145); Total Protein 7.9 g/dL (6.3-8.2)
[2021-11-25 11:02] LABS: Glucose 46 mg/dL (74-99)
[2021-11-25 11:06] LABS: Glucose,Whole Blood 94 mg/dL (75-99)
--- NOTE | 2021-11-25 11:34 | P.HP ---
Psychiatric H&P - . H&P Date: 11/25/21 History & Physical: Allergies Allergy/AdvReac Type Severity Reaction Status Date / Time No Known Allergies Allergy Verified 11/24/21 13:56 Vital Signs Temp 97.8 F 11/25/21 08:51 Pulse 108 H 11/25/21 08:51 Resp 18 11/24/21 20:10 BP 131/68 11/25/21 08:51 Pulse Ox 98 11/24/21 12:40 Intake & Output 11/24/21 11/25/21 11/25/21 18:59 06:59 18:59 Weight 66.678 kg 64.3 kg Laboratory Last Values WBC 6.4 k/uL (3.8-10.6) 11/25/21 09:44 RBC 4.98 m/uL (4.30-5.90) 11/25/21 09:44 Hgb 15.2 gm/dL (13.0-17.5) 11/25/21 09:44 Hct 46.5 % (39.0-53.0) 11/25/21 09:44 MCV 93.4 fL (80.0-100.0) 11/25/21 09:44 MCH 30.6 pg (25.0-35.0) 11/25/21 09:44 MCHC 32.7 g/dL (31.0-37.0) 11/25/21 09:44 RDW 13.0 % (11.5-15.5) 11/25/21 09:44 Plt Count 213 k/uL (150-450) 11/25/21 09:44 MPV 8.7 11/25/21 09:44 Neutrophils % 70 % 11/25/21 09:44 Lymphocytes % 19 % 11/25/21 09:44 Monocytes % 6 % 11/25/21 09:44 Eosinophils % 3 % 11/25/21 09:44 Basophils % 0 % 11/25/21 09:44 Neutrophils # 4.5 k/uL (1.3-7.7) 11/25/21 09:44 Lymphocytes # 1.2 k/uL (1.0-4.8) 11/25/21 09:44 Monocytes # 0.4 k/uL (0-1.0) 11/25/21 09:44 Eosinophils # 0.2 k/uL (0-0.7) 11/25/21 09:44 Basophils # 0.0 k/uL (0-0.2) 11/25/21 09:44 Sodium 140 mmol/L (137-145) 11/25/21 09:44 Potassium 4.1 mmol/L (3.5-5.1) 11/25/21 09:44 Chloride 103 mmol/L (98-107) 11/25/21 09:44 Carbon Dioxide 28 mmol/L (22-30) 11/25/21 09:44 Anion Gap 9 mmol/L 11/25/21 09:44 BUN 12 mg/dL (9-20) 11/25/21 09:44 Creatinine 0.93 mg/dL (0.66-1.25) 11/25/21 09:44 Est GFR (CKD-EPI)AfAm >90 (>60 ml/min/1.73 sqM) 11/25/21 09:44 Est GFR (CKD-EPI)NonAf >90 (>60 ml/min/1.73 sqM) 11/25/21 09:44 Glucose 46 mg/dL (74-99) L* 11/25/21 09:44 POC Glucose (mg/dL) 94 mg/dL (75-99) 11/25/21 11:04 POC Glu Ambulance Operations Supervisor ID Giselle Crabtree 11/25/21 11:04 Calcium 9.9 mg/dL (8.4-10.2) 11/25/21 09:44 Total Bilirubin 1.0 mg/dL (0.2-1.3) 11/25/21 09:44 AST 22 U/L (17-59) 11/25/21 09:44 ALT 13 U/L (4-49) 11/25/21 09:44 Alkaline Phosphatase 57 U/L (38-126) 11/25/21 09:44 Total Protein 7.9 g/dL (6.3-8.2) 11/25/21 09:44 Albumin 4.7 g/dL (3.5-5.0) 11/25/21 09:44 TSH 0.809 mIU/L (0.465-4.680) 11/25/21 09:44 Urine Color Yellow 11/24/21 13:29 Urine Appearance Clear (Clear) 11/24/21 13:29 Urine pH 7.0 (5.0-8.0) 11/24/21 13:29 Ur Specific [place] 1.018 (1.001-1.035) 11/24/21 13:29 Urine Protein Negative (Negative) 11/24/21 13:29 Urine Glucose (UA) Negative (Negative) 11/24/21 13:29 Urine Ketones Negative (Negative) 11/24/21 13:29 Urine Blood Negative (Negative) 11/24/21 13:29 Urine Nitrite Negative (Negative) 11/24/21 13:29 Urine Bilirubin Negative (Negative) 11/24/21 13:29 Urine Urobilinogen 2.0 mg/dL (<2.0) 11/24/21 13:29 Ur Leukocyte Esterase Negative (Negative) 11/24/21 13:29 Urine Opiates Screen Not Detected (NotDetected) 11/24/21 13:29 Ur Oxycodone Screen Not Detected (NotDetected) 11/24/21 13:29 Urine Methadone Screen Not Detected (NotDetected) 11/24/21 13:29 Ur Propoxyphene Screen Not Detected (NotDetected) 11/24/21 13:29 Ur Barbiturates Screen Not Detected (NotDetected) 11/24/21 13:29 U Tricyclic Antidepress Not Detected (NotDetected) 11/24/21 13:29 Ur Phencyclidine Scrn Not Detected (NotDetected) 11/24/21 13:29 Ur Amphetamines Screen Not Detected (NotDetected) 11/24/21 13:29 U Methamphetamines Scrn Not Detected (NotDetected) 11/24/21 13:29 U Benzodiazepines Scrn Not Detected (NotDetected) 11/24/21 13:29 Urine Cocaine Screen Not Detected (NotDetected) 11/24/21 13:29 U Marijuana (THC) Screen Detected (NotDetected) H 11/24/21 13:29 Coronavirus (PCR) Not Detected (Not Detectd) 11/24/21 13:20 11/25/21 11:27 IDENTIFYING DATA: Patient is a 21-year-old male transitioning to female, currently lives with his mother and stepfather and their kids and a house. She currently works in a gas station. HPI: Patient presented to the hospital yesterday and was admitted for suicidal ideations, cutting behavior and depression. She was admitted voluntarily to the mental health unit and agreeable to speak to program writer today. Patient states that she has been "stressed from life in general" and claims that she may have a history of bipolar disorder however is not diagnosed. She states that she has been tried on Zoloft for the past 3 weeks by her PCP however claims that she feels she has been having her mood swings more and feeling unwell and generally "crashes into a deep depression". She states that she did not want to go home after work last Tuesday and states that she went to a bar and then began feeling depressed and began cutting herself at home after being intoxicated. She states that she woke up the next day and felt more depressed and did the same thing after being intoxicated. She states that she started going after her femoral artery and claims that she cut fairly deep. She states that she was trying to kill herself and came to the hospital over the weekend however was "turned away" and went home. She states that she called her PCP and try to get an early appointment however the primary care doctor referred her back to the hospital. She states that bipolar disorder runs in her family. She states that she has had manic episodes in the past and has been feeling "euphoric" at times. She states that her sleep has been on and off. Claims to have a poor appetite. She states that she has been on estrogen for over a year now. Patient denies any current suicidal or homicidal ideations intent or plan. At this time patient denies any auditory or visual hallucinations. Patient denies any flight of ideas racing thoughts and increased in goal directed behavior. Patient admits to using cigarettes daily, binge drinking alcohol, and quit marijuana use about 3 weeks ago. UDS is positive for THC. PAST PSYCHIATRIC HISTORY: Patient states that she has a history of depression and bipolar disorder. She claims that she has been on latuda, Abilify, Zoloft in the past and has had bad reactions to them. She states that she has been hospitalized several times in the past, she recalls being hospitalized at [facility] in 2015 and also most recently at [facility] in [place]. Patient denies any psychiatric outpatient follow-up. She states that she has had several suicide attempts in the past and cutting behavior. PMH: As per ER note. ALLERGIES: as per EMR CHEMICAL DEPENDENCY HISTORY: as per HPI FAMILY PSYCHIATRIC/SUBSTANCE USE HISTORY: Claims that bipolar runs strongly in her family. SOCIAL HISTORY: Patient was born and raised in [facility] and also [facility]. She states that she currently lives with her mother stepfather and also their kids in the house. She works at a gas station. She states that she was mainly homeschooled growing up and ended up dropping out initially however returning back for her GED. She states that she does not have any legal history. MENTAL STATUS EXAM: General Appearance: Patient appears to be tall, thin, long hair, wearing glasses, stated age is alert, directable, and attempts to cooperate. Patient appears to have poor hygiene and grooming. Behavior: Patient is seated without any agitated behavior. Constricted, attempts to cooperate. Speech: Patient's speech is fluent and nonpressured. Soft tone. Mood/Affect: Patient reports their mood is depressed, affect is congruent and constricted. Suicidality/Homicidality: Patient denies having any homicidal ideation intent or plan. Denies any suicidal ideations intent or plan Perceptions: Patient denies any visual hallucinations and denies any auditory hallucinations Though content/process: There is no evidence of any delusional thought content and thought process is linear and goal-directed. Memory and concentration: AOX3, grossly intact for the purposes of this session. Can spell "WORLD" backwards Judgment and insight: poor STRENGTHS/WEAKNESSES: strength is that patient is resilient. Weakness is that patient has poor judgment and is impulsive INTELLECT: average IMPRESSIONS: Bipolar disorder, current episode depressed Anxiety disorder unspecified, rule out PTSD Cannabis use disorder mild Alcohol abuse Self harming behavior Nicotine dependence PLAN: -Patient is admitted under voluntary status to MHU for stabilization of psychiatric symptoms and safety. Patient has signed adult voluntary form and medication consent and is placed in patient's chart. -Medications : Will start patient on Lamictal 25 mg twice a day for mood stabilization/depression with plan to titrate up. Orchestra Conductor spoke with patient in detail about the potential for a rash and to monitor her skin, patient verbally understood and agreed. Trazodone 50 mg daily at bedtime for insomnia/mood. -Ativan and Haldol PRN for agitation/aggression -Patient was counselled on substance abuse and desired to cut back on use -Patient was informed of the risks, benefits and side effects of the medication and patient verbally consented to taking the medications. Patient signed med consent form and was placed in chart. -Internal Medicine consult to perform medical evaluation and physical. Evaluating cuts aswell. -NRT - nicotine patch -SW on board for discharge planning. Encourage patient to participate in groups to work on coping skills.
--- NOTE | 2021-11-25 11:45 | P.CONS ---
History of Present Illness - Reason for Consult Consult date: 11/25/21 Medical Management Requesting physician: Mc Hager - Chief Complaint Depression suicidal ideation - History of Present Illness This is a 21-year-old patient who presented to the ER with concerns of increased depression and suicidal ideation. She reports that they have had increase stress leading to increased depression and suicidal behavior. Patient reports that she began cutting her leg the other day trying to commit suicide. Patient is currently transitioning from male to female. Additional medical history includes appendectomy anxiety depression. Patient also reports she smokes personally Pack cigarettes per day. Occasional marijuana use and occasional alcohol use. Patient reports that he was recently started on Zoloft. Patient denies any recent illness or infection. At this time patient is calm and answers questions appropriately. Patient denies chest pain or shortness of breath. Patient denies nausea vomiting or diarrhea. Patient denies any urinary burning or frequency. Patient's blood sugar on blood work this a.m. low at 46. Patient denies any medications that would lower blood sugar. Repeat blood sugar 94. Patient has multiple superficial cuts to right upper leg. Will order bacitracin to be applied. Review of Systems please refer to HPI otherwise unremarkable Past Medical History Past Medical History: No Reported History History of Any Multi-Drug Resistant Organisms: None Reported Past Surgical History: Appendectomy Additional Past Surgical History / Comment(s): eye surgery Past Anesthesia/Blood Transfusion Reactions: No Reported Reaction Past Psychological History: Anxiety, Depression Smoking Status: Vaper Past Alcohol Use History: Occasional Past Drug Use History: Marijuana - Past Family History Sister(s) Family Medical History: GERD/Reflux, GI Bleed Additional Family Medical History / Comment(s): Colits and cystic fibrosis and endometriosis. Medications and Allergies Home Medications Medication Instructions Recorded Confirmed Type Spironolactone 100 mg PO DAILY 04/16/21 11/24/21 History Sertraline [Zoloft] 50 mg PO HS 11/19/21 11/24/21 History estradioL [estradioL (Twice 2 patch TRANSDERM WESA 11/19/21 11/24/21 History Weekly) 0.1 mg Patch] Allergies Allergy/AdvReac Type Severity Reaction Status Date / Time No Known Allergies Allergy Verified 11/24/21 13:56 Physical Exam Vitals: Vital Signs Temp Pulse Pulse Resp BP BP Pulse Ox 11/25/21 08:51 97.8 F 108 H 131/68 11/24/21 20:10 99.1 F 88 18 125/78 11/24/21 12:40 98.2 F 96 18 113/76 98 Intake and Output 11/24/21 11/25/21 11/25/21 22:59 06:59 14:59 Other: Weight 64.3 kg Head normocephalic Neck supple Lungs clear to auscultation bilaterally no wheezing or crackles Heart regular rate and rhythm S1-S2, no rub or gallop Abdomen is soft nontender nondistended positive bowel sounds no hepatosplenomegaly Extremities no edema. Moderate supple superficial wounds to right lower ex tremity Neuro alert and orientated to 3 Results CBC & Chem 7: 11/25/21 09:44 11/25/21 09:44 Labs: Abnormal Lab Results - Last 24 Hours (Table) 11/24/21 11/25/21 Range/Units 13:29 09:44 Glucose 46 L* (74-99) mg/dL U Marijuana (THC) Screen Detected H (NotDetected) Assessment and Plan Assessment: 1. Depression with suicidal ideation. Patient has been voluntarily admitted to the mental health unit 2. Superficial cuts to right lower extremity. Will order bacitracin 3. Episode of hypoglycemia. Blood sugars seem 46. Repeat 94 continue to monitor 4. Male to female transgender patient maintained on estrogen 5. Nicotine dependence. Thank you for this consultation we will continue to follow patient closely throughout stay Time with Patient: Greater than 30 (Greater than 60% of the total time spent in counseling and coordination of care)
[2021-11-25] MEDS: lamoTRIgine 25 MG TAB PO SCH ×2 (12:56→19:49)
[2021-11-25] MEDS: BACITRACIN OINT 1 EACH PACKET TOPICAL SCH ×2 (16:21→19:49)
[2021-11-25] MEDS ORDERED: traZODone HCL 50 MG TAB PO SCH (21:00)
[2021-11-25] MEDS: LORazepam 1 MG TAB PO PRN (23:52)
[2021-11-26] MEDS: NICOTINE 14MG/24HR PATCH TRANSDERM SCH (09:18)
[2021-11-26] MEDS: SPIRONOLACTONE 25 MG TAB PO SCH (09:19)
[2021-11-26] MEDS: lamoTRIgine 25 MG TAB PO SCH ×2 (09:20→20:34)
[2021-11-26] MEDS: BACITRACIN OINT 1 EACH PACKET TOPICAL SCH ×3 (09:20→20:37)
[2021-11-26] MEDS ORDERED: MELATONIN 3 MG TABLET PO PRN (12:08)
--- NOTE | 2021-11-26 12:09 | P.PN ---
Progress Note - Text Progress Note Date: 11/26/21 Interval History: Patient was seen taking part in group this morning and was directable and agre eable to speak with fiction and nonfiction writer prose in the office. Patient appears to be more directable during conversation. She states that she is still dealing with anxiety while being on the unit and was requesting medications for it. She was agreeable to try BuSpar for today. She states that she had a difficult time sleeping last night and required Ativan after waking up after 4 hours. She states that her mood swings have been mildly improving and also states "it might be too early to tell". She states that she has not seen any rashes on her skin yet. She states that she is going to groups and participating this as she can. She states that she needs to be put back on her estrogen patch and states that her grandma will be bringing them in from home. At this time patient denies any suicidal or homical ideations, intent or plan. Patient denies any auditory, visual hallucinations and denies any paranoia or delusions. Patient denies any side effects from the medications and has been compliant with meds. Mental Status Exam: General Appearance: Patient appears to be tall, thin, long hair, wearing glasses, stated age is alert, directable, and attempts to cooperate. Patient appears to have improving hygiene and grooming. Behavior: Patient is seated without any agitated behavior. Constricted, improving. attempts to cooperate. Speech: Patient's speech is fluent and nonpressured. Soft tone, improving Mood/Affect: Patient reports their mood is depressed, improving mildly, affect is congruent and constricted. Suicidality/Homicidality: Patient denies having any homicidal ideation intent or plan. Denies any suicidal ideations intent or plan Perceptions: Patient denies any visual hallucinations and denies any auditory hallucinations Though content/process: There is no evidence of any delusional thought content and thought process is linear and goal-directed. Memory and concentration: AOX3, grossly intact for the purposes of this session Judgment and insight: poor, proving mildly Assessment Bipolar disorder, current episode depressed Anxiety disorder unspecified, rule out PTSD Cannabis use disorder mild Alcohol abuse Self harming behavior Nicotine dependence Plan: -Patient continues to meet criteria for inpatient psychiatric admission for symptom stabilization and safety. Patient has signed adult voluntary form and medication consent and was placed in patient's chart. -Medications: Increase Lamictal to 50 mg twice a day for mood stabilization/depression. Continue monitoring for skin rash. Increase trazodone to 100 mg daily at bedtime for insomnia/mood. Added on melatonin 6 mg daily at bedtime when necessary for sleep. -When necessary Ativan and Haldol for agitation/aggression. -awaiting grandomother to bring in estrogen patch today and needs to be cleared by pharmacy -NRT - nicotine patch -SW on board for discharge planning. Encouraged the patient to participate in milieu.
[2021-11-26] MEDS: busPIRone HCl 10 MG TAB PO SCH ×2 (12:30→20:34)
[2021-11-26] MEDS ORDERED: ESTRADIOL TRANSDERM SCH (21:00)
[2021-11-26] MEDS ORDERED: traZODone HCL 100 MG TAB PO SCH (21:00)
[2021-11-27 07:06] VITALS: RESP 14; TEMP 97.7
[2021-11-27] MEDS: SPIRONOLACTONE 25 MG TAB PO SCH (08:45)
[2021-11-27] MEDS: BACITRACIN OINT 1 EACH PACKET TOPICAL SCH (08:45)
[2021-11-27] MEDS: lamoTRIgine 25 MG TAB PO SCH (08:45)
[2021-11-27] MEDS: busPIRone HCl 10 MG TAB PO SCH (08:45)
[2021-11-27] MEDS: NICOTINE 14MG/24HR PATCH TRANSDERM SCH (08:46)
[2021-11-27 09:06] VITALS: BP 111/71; PULSE 99
--- NOTE | 2021-11-27 10:40 | P.PN ---
Progress Note - Text Progress Note Date: 11/27/21 Admission HPI: Admission note was completed by publicity writer "Patient is a 21-year-old male transitioning to female, currently lives with his mother and stepfather and their kids and a house. She currently works in a gas station. Patient presented to the hospital yesterday and was admitted for suicidal ideations, cutting behavior and depression. She was admitted voluntarily to the mental health unit and agreeable to speak to publicity writer today. Patient states that she has been "stressed from life in general" and claims that she may have a history of bipolar disorder however is not diagnosed. She states that she has been tried on Zoloft for the past 3 weeks by her PCP however claims that she feels she has been having her mood swings more and feeling unwell and generally "crashes into a deep depression". She states that she did not want to go home after work last Tuesday and states that she went to a bar and then began feeling depressed and began cutting herself at home after being intoxicated. She states that she woke up the next day and felt more depressed and did the same thing after being intoxicated. She states that she started going after her femoral artery and claims that she cut fairly deep. She states that she was trying to kill herself and came to the hospital over the weekend however was "turned away" and went home. She states that she called her PCP and try to get an early appointment however the primary care doctor referred her back to the hospital. She states that bipolar disorder runs in her family. She states that she has had manic episodes in the past and has been feeling "euphoric" at times. She states that her sleep has been on and off. Claims to have a poor appetite. She states that she has been on estrogen for over a year now. Patient denies any current suicidal or homicidal ideations intent or plan. At this time patient denies any auditory or visual hallucinations. Patient denies any flight of ideas racing thoughts and increased in goal directed behavior. Patient admits to using cigarettes daily, binge drinking alcohol, and quit marijuana use about 3 weeks ago. UDS is positive for THC." Hospital course: Upon admission to the unit patient was directable and agreeable to commence treatment and signed adult voluntary form . Patient got along well with other patients on the unit and followed unit protocol. Patient was compliant with the medications and denied any side effects throughout hospital course. Patient was started on Lamictal and titrated up to dose of 50 mg twice a day for mood stabilization/depression, patient was also discontinued off of Zoloft. She was started on BuSpar 10 mg twice a day for anxiety. Trazodone 100 mg daily at bedtime for sleep/mood. Patient spoke of his stressors and engaged in therapy both group and individual. Patient was also seen by medical team for history and physical exam. Patient was examined by medical team for the wounds sustained by cutting and was prescribed bacitracin and ointment. Throughout the course of the hospitalization patient gradually improved with regards to mood, anxiety, sleep and became more future oriented with improved insight and judgment. On the day of discharge patient denied any suicidal or homicidal ideations intent or plan denied any auditory or visual hallucinations. Patient endorsed wanting to live for her relationship with her boyfriend and her future. The patient denied any access to guns or weapons. Patient denied any paranoia and did not endorse any delusions. Patient does have a significant history of substance abuse and was counseled on abstaining from all substances including alcohol and marijuana. Patient elected to do outpatient counseling for her substance use and wanted to cut back drinking on her own and declined any medications or rehab at this time. Patient was also counseled on the medications and need for regular compliance and was encouraged to follow-up with their outpatient appointment for mental health and also for primary care. Prior to discharge a family meeting will be arranged by forensic social worker to answer any questions and ensure safety upon discharge. Mental status exam: General Appearance: Patient appears to be thin, wearing glasses, long hair, stated age is alert, pleasant, and cooperative. Patient is in no acute distress and has improved hygiene and grooming Behavior: Patient is calmly seated without any agitated behavior. Speech: Patient's speech is fluent and nonpressured. Mood/Affect: Patient reports their mood is "better", affect is congruent and euthymic. Suicidality/Homicidality: Patient denies having any suicidal or homicidal ideation intent or plan. Perceptions: Patient denies any auditory or visual hallucinations. Though content/process: There is no evidence of any delusional thought content and thought process is linear and goal-directed. more future oriented Memory and concentration: AOX3, grossly intact for the purposes of this session. Can spell "WORLD" backwards correctly. Judgment and insight: chronically poor, however has improved with guarded prognosis Impression: Bipolar disorder, current episode depressed Anxiety disorder unspecified, rule out PTSD Cannabis use disorder mild Alcohol abuse Self harming behavior Nicotine dependence Plan: -Continue with discharge today as patient has improved and stabilized psychiatrically and is not currently an imminent threat to herself and/or others. Patient will remain at chronically elevated risk for harm to self and/or others due to her impulsivity and substance abuse. -Continue medications: Trazodone 100 mg daily at bedtime for insomnia/mood, Lamictal 50 mg twice a day for mood stabilization/depression, BuSpar 10 mg twice a day for anxiety. Spoke with patient in great detail about the risk of a possible rash from Lamictal and to keep my on monitoring her skin and seek urgent medical attention of this does arise. -Patient was counseled on the need for medication compliance and appropriate follow-up at mental health and also primary care for medical issues. Patient verbalized understanding and agreed. -Social work to arrange for and conduct family meeting to ensure safety upon discharge and answer any questions/concerns. Social work also to arrange for patients follow up appointments for psychiatric care along with follow up with primary care provider. -Patient counseled on abstaining from recreational drugs and marijuana and alcohol. Was informed/educated on the adverse effects on their physical and mental health. Patient verbally agreed and understood. Patient wants to cut back drinking on her own and will work on this with her outpatient counselor. -Patient was instructed to return to the hospital or seek immediate medical care if their psychiatric or medical symptoms do worsen or reoccur. Allergies Allergy/AdvReac Type Severity Reaction Status Date / Time No Known Allergies Allergy Verified 11/24/21 13:56 Laboratory Results WBC 6.4 k/uL (3.8-10.6) 11/25/21 09:44 RBC 4.98 m/uL (4.30-5.90) 11/25/21 09:44 Hgb 15.2 gm/dL (13.0-17.5) 11/25/21 09:44 Hct 46.5 % (39.0-53.0) 11/25/21 09:44 MCV 93.4 fL (80.0-100.0) 11/25/21 09:44 MCH 30.6 pg (25.0-35.0) 11/25/21 09:44 MCHC 32.7 g/dL (31.0-37.0) 11/25/21 09:44 RDW 13.0 % (11.5-15.5) 11/25/21 09:44 Plt Count 213 k/uL (150-450) 11/25/21 09:44 MPV 8.7 11/25/21 09:44 Neutrophils % 70 % 11/25/21 09:44 Lymphocytes % 19 % 11/25/21 09:44 Monocytes % 6 % 11/25/21 09:44 Eosinophils % 3 % 11/25/21 09:44 Basophils % 0 % 11/25/21 09:44 Neutrophils # 4.5 k/uL (1.3-7.7) 11/25/21 09:44 Lymphocytes # 1.2 k/uL (1.0-4.8) 11/25/21 09:44 Monocytes # 0.4 k/uL (0-1.0) 11/25/21 09:44 Eosinophils # 0.2 k/uL (0-0.7) 11/25/21 09:44 Basophils # 0.0 k/uL (0-0.2) 11/25/21 09:44 Sodium 140 mmol/L (137-145) 11/25/21 09:44 Potassium 4.1 mmol/L (3.5-5.1) 11/25/21 09:44 Chloride 103 mmol/L (98-107) 11/25/21 09:44 Carbon Dioxide 28 mmol/L (22-30) 11/25/21 09:44 Anion Gap 9 mmol/L 11/25/21 09:44 BUN 12 mg/dL (9-20) 11/25/21 09:44 Creatinine 0.93 mg/dL (0.66-1.25) 11/25/21 09:44 Est GFR (CKD-EPI)AfAm >90 (>60 ml/min/1.73 sqM) 11/25/21 09:44 Est GFR (CKD-EPI)NonAf >90 (>60 ml/min/1.73 sqM) 11/25/21 09:44 Glucose 46 mg/dL (74-99) L* 11/25/21 09:44 POC Glucose (mg/dL) 94 mg/dL (75-99) 11/25/21 11:04 POC Glu Social Sciences Chair ID Giselle Crabtree 11/25/21 11:[address] Glu mg/dL 95 11/25/21 09:44 Hemoglobin A1c 5.0 % (0.0-6.0) 11/25/21 09:44 Calcium 9.9 mg/dL (8.4-10.2) 11/25/21 09:44 Total Bilirubin 1.0 mg/dL (0.2-1.3) 11/25/21 09:44 AST 22 U/L (17-59) 11/25/21 09:44 ALT 13 U/L (4-49) 11/25/21 09:44 Alkaline Phosphatase 57 U/L (38-126) 11/25/21 09:44 Total Protein 7.9 g/dL (6.3-8.2) 11/25/21 09:44 Albumin 4.7 g/dL (3.5-5.0) 11/25/21 09:44 TSH 0.809 mIU/L (0.465-4.680) 11/25/21 09:44 Urine Color Yellow 11/24/21 13:29 Urine Appearance Clear (Clear) 11/24/21 13:29 Urine pH 7.0 (5.0-8.0) 11/24/21 13:29 Ur Specific [place] 1.018 (1.001-1.035) 11/24/21 13:29 Urine Protein Negative (Negative) 11/24/21 13:29 Urine Glucose (UA) Negative (Negative) 11/24/21 13:29 Urine Ketones Negative (Negative) 11/24/21 13:29 Urine Blood Negative (Negative) 11/24/21 13:29 Urine Nitrite Negative (Negative) 11/24/21 13:29 Urine Bilirubin Negative (Negative) 11/24/21 13:29 Urine Urobilinogen 2.0 mg/dL (<2.0) 11/24/21 13:29 Ur Leukocyte Esterase Negative (Negative) 11/24/21 13:29 Urine Opiates Screen Not Detected (NotDetected) 11/24/21 13:29 Ur Oxycodone Screen Not Detected (NotDetected) 11/24/21 13:29 Urine Methadone Screen Not Detected (NotDetected) 11/24/21 13:29 Ur Propoxyphene Screen Not Detected (NotDetected) 11/24/21 13:29 Ur Barbiturates Screen Not Detected (NotDetected) 11/24/21 13:29 U Tricyclic Antidepress Not Detected (NotDetected) 11/24/21 13:29 Ur Phencyclidine Scrn Not Detected (NotDetected) 11/24/21 13:29 Ur Amphetamines Screen Not Detected (NotDetected) 11/24/21 13:29 U Methamphetamines Scrn Not Detected (NotDetected) 11/24/21 13:29 U Benzodiazepines Scrn Not Detected (NotDetected) 11/24/21 13:29 Urine Cocaine Screen Not Detected (NotDetected) 11/24/21 13:29 U Marijuana (THC) Screen Detected (NotDetected) H 11/24/21 13:29 Coronavirus (PCR) Not Detected (Not Detectd) 11/24/21 13:20 Vital Signs Temp 97.7 F 11/27/21 06:37 Pulse 99 11/27/21 09:05 Resp 14 11/27/21 06:37 BP 111/71 11/27/21 09:05 Pulse Ox 98 11/24/21 12:40
--- NOTE | 2021-11-27 11:15 | P.DS ---
Providers Date of admission: 11/24/21 18:33 Expected date of discharge: 11/27/21 Attending physician: Mc Hager MD Consults: 11/24/21 21:16 Consult Physician Routine Consulting Provider: Daniel Henderson Consult Reason/Comments: History and physical Do you want consulting provider notified?: Yes, Notify in am Primary care physician: Jenelle Dacosta - Discharge Diagnosis(es) (1) Bipolar disorder current episode depressed Current Visit: Yes Status: Acute Priority: High (2) Anxiety disorder Current Visit: Yes Status: Acute Priority: Medium (3) Cannabis use disorder, mild, abuse Current Visit: Yes Status: Acute Priority: Low (4) Alcohol abuse Current Visit: Yes Status: Acute Priority: Medium (5) Self-harming behavior Current Visit: Yes Status: Acute Priority: High (6) Nicotine dependence Current Visit: Yes Status: Acute Priority: Low Hospital Course: Admission HPI: Admission note was completed by screenplay writer "Patient is a 21-year-old male transitioning to female, currently lives with his mother and stepfather and their kids and a house. She currently works in a gas station. Patient presented to the hospital yesterday and was admitted for suicidal ideations, cutting beh avior and depression. She was admitted voluntarily to the mental health unit and agreeable to speak to screenplay writer today. Patient states that she has been "stressed from life in general" and claims that she may have a history of bipolar disorder however is not diagnosed. She states that she has been tried on Zoloft for the past 3 weeks by her PCP however claims that she feels she has been having her mood swings more and feeling unwell and generally "crashes into a deep depression". She states that she did not want to go home after work last Tuesday and states that she went to a bar and then began feeling depressed and began cutting herself at home after being intoxicated. She states that she woke up the next day and felt more depressed and did the same thing after being intoxicated. She states that she started going after her femoral artery and claims that she cut fairly deep. She states that she was trying to kill herself and came to the hospital over the weekend however was "turned away" and went home. She states that she called her PCP and try to get an early appointment however the primary care doctor referred her back to the hospital. She states that bipolar disorder runs in her family. She states that she has had manic episodes in the past and has been feeling "euphoric" at times. She states that her sleep has been on and off. Claims to have a poor appetite. She states that she has been on estrogen for over a year now. Patient denies any current suicidal or homicidal ideations intent or plan. At this time patient denies any auditory or visual hallucinations. Patient denies any flight of ideas racing thoughts and increased in goal directed behavior. Patient admits to using cigarettes daily, binge drinking alcohol, and quit marijuana use about 3 weeks a go. UDS is positive for THC." Hospital course: Upon admission to the unit patient was directable and agreeable to commence treatment and signed adult voluntary form . Patient got along well with other patients on the unit and followed unit protocol. Patient was compliant with the medications and denied any side effects throughout hospital course. Patient was started on Lamictal and titrated up to dose of 50 mg twice a day for mood stabilization/depression, patient was also discontinued off of Zoloft. She was started on BuSpar 10 mg twice a day for anxiety. Trazodone 100 mg daily at bedtime for sleep/mood. Patient spoke of his stressors and engaged in therapy both group and individual. Patient was also seen by medical team for history and physical exam. Patient was examined by medical team for the wounds sustained by cutting and was prescribed bacitracin and ointment. Throughout the course of the hospitalization patient gradually improved with regards to mood, anxiety, sleep and became more future oriented with improved insight and judgment. On the day of discharge patient denied any suicidal or homicidal ideations intent or plan denied any auditory or visual hallucinations. Patient endorsed wanting to live for her relationship with her boyfriend and her future. The patient denied any access to guns or weapons. Patient denied any paranoia and did not endorse any delusions. Patient does have a significant history of substance abuse and was counseled on abstaining from all substances including alcohol and marijuana. Patient elected to do outpatient counseling for her substance use and wanted to cut back drinking on her own and declined any medications or rehab at this time. Patient was also counseled on the medications and need for regular compliance and was encouraged to follow-up with their outpatient appointment for mental health and also for primary care. Prior to discharge a family meeting will be arranged by manager social to answer any questions and ensure safety upon discharge. Mental status exam: General Appearance: Patient appears to be thin, wearing glasses, long hair, stated age is alert, pleasant, and cooperative. Patient is in no acute distress and has improved hygiene and grooming Behavior: Patient is calmly seated without any agitated behavior. Speech: Patient's speech is fluent and nonpressured. Mood/Affect: Patient reports their mood is "better", affect is congruent and euthymic. Suicidality/Homicidality: Patient denies having any suicidal or homicidal ideation intent or plan. Perceptions: Patient denies any auditory or visual hallucinations. Though content/process: There is no evidence of any delusional thought content and thought process is linear and goal-directed. more future oriented Memory and concentration: AOX3, grossly intact for the purposes of this session. Can spell "WORLD" backwards correctly. Judgment and insight: chronically poor, however has improved with guarded prognosis Impression: Bipolar disorder, current episode depressed Anxiety disorder unspecified, rule out PTSD Cannabis use disorder mild Alcohol abuse Self harming behavior Nicotine dependence Plan: -Continue with discharge today as patient has improved and stabilized psychiatrically and is not currently an imminent threat to herself and/or others. Patient will remain at chronically elevated risk for harm to self and/or others due to her impulsivity and substance abuse. -Continue medications: Trazodone 100 mg daily at bedtime for insomnia/mood, Lamictal 50 mg twice a day for mood stabilization/depression, BuSpar 10 mg twice a day for anxiety. Spoke with patient in great detail about the risk of a possible rash from Lamictal and to keep my on monitoring her skin and seek urgent medical attention of this does arise. -Patient was counseled on the need for medication compliance and appropriate follow-up at mental health and also primary care for medical issues. Patient verbalized understanding and agreed. -Social work to arrange for and conduct family meeting to ensure safety upon discharge and answer any questions/concerns. Social work also to arrange for patients follow up appointments for psychiatric care along with follow up with primary care provider. -Patient counseled on abstaining from recreational drugs and marijuana and alcohol. Was informed/educated on the adverse effects on their physical and mental health. Patient verbally agreed and understood. Patient wants to cut back drinking on her own and will work on this with her outpatient counselor. -Patient was instructed to return to the hospital or seek immediate medical care if their psychiatric or medical symptoms do worsen or reoccur. Allergies Allergy/AdvReac Type Severity Reaction Status Date / Time No Known Allergies Allergy Verified 11/24/21 13:56 Laboratory Results WBC 6.4 k/uL (3.8-10.6) 11/25/21 09:44 RBC 4.98 m/uL (4.30-5.90) 11/25/21 09:44 Hgb 15.2 gm/dL (13.0-17.5) 11/25/21 09:44 Hct 46.5 % (39.0-53.0) 11/25/21 09:44 MCV 93.4 fL (80.0-100.0) 11/25/21 09:44 MCH 30.6 pg (25.0-35.0) 11/25/21 09:44 MCHC 32.7 g/dL (31.0-37.0) 11/25/21 09:44 RDW 13.0 % (11.5-15.5) 11/25/21 09:44 Plt Count 213 k/uL (150-450) 11/25/21 09:44 MPV 8.7 11/25/21 09:44 Neutrophils % 70 % 11/25/21 09:44 Lymphocytes % 19 % 11/25/21 09:44 Monocytes % 6 % 11/25/21 09:44 Eosinophils % 3 % 11/25/21 09:44 Basophils % 0 % 11/25/21 09:44 Neutrophils # 4.5 k/uL (1.3-7.7) 11/25/21 09:44 Lymphocytes # 1.2 k/uL (1.0-4.8) 11/25/21 09:44 Monocytes # 0.4 k/uL (0-1.0) 11/25/21 09:44 Eosinophils # 0.2 k/uL (0-0.7) 11/25/21 09:44 Basophils # 0.0 k/uL (0-0.2) 11/25/21 09:44 Sodium 140 mmol/L (137-145) 11/25/21 09:44 Potassium 4.1 mmol/L (3.5-5.1) 11/25/21 09:44 Chloride 103 mmol/L (98-107) 11/25/21 09:44 Carbon Dioxide 28 mmol/L (22-30) 11/25/21 09:44 Anion Gap 9 mmol/L 11/25/21 09:44 BUN 12 mg/dL (9-20) 11/25/21 09:44 Creatinine 0.93 mg/dL (0.66-1.25) 11/25/21 09:44 Est GFR (CKD-EPI)AfAm >90 (>60 ml/min/1.73 sqM) 11/25/21 09:44 Est GFR (CKD-EPI)NonAf >90 (>60 ml/min/1.73 sqM) 11/25/21 09:44 Glucose 46 mg/dL (74-99) L* 11/25/21 09:44 POC Glucose (mg/dL) 94 mg/dL (75-99) 11/25/21 11:04 POC Glu Grader Operator ID Giselle Crabtree 11/25/21 11:[address] Glu mg/dL 95 11/25/21 09:44 Hemoglobin A1c 5.0 % (0.0-6.0) 11/25/21 09:44 Calcium 9.9 mg/dL (8.4-10.2) 11/25/21 09:44 Total Bilirubin 1.0 mg/dL (0.2-1.3) 11/25/21 09:44 AST 22 U/L (17-59) 11/25/21 09:44 ALT 13 U/L (4-49) 11/25/21 09:44 Alkaline Phosphatase 57 U/L (38-126) 11/25/21 09:44 Total Protein 7.9 g/dL (6.3-8.2) 11/25/21 09:44 Albumin 4.7 g/dL (3.5-5.0) 11/25/21 09:44 TSH 0.809 mIU/L (0.465-4.680) 11/25/21 09:44 Urine Color Yellow 11/24/21 13:29 Urine Appearance Clear (Clear) 11/24/21 13:29 Urine pH 7.0 (5.0-8.0) 11/24/21 13:29 Ur Specific [place] 1.018 (1.001-1.035) 11/24/21 13:29 Urine Protein Negative (Negative) 11/24/21 13:29 Urine Glucose (UA) Negative (Negative) 11/24/21 13:29 Urine Ketones Negative (Negative) 11/24/21 13:29 Urine Blood Negative (Negative) 11/24/21 13:29 Urine Nitrite Negative (Negative) 11/24/21 13:29 Urine Bilirubin Negative (Negative) 11/24/21 13:29 Urine Urobilinogen 2.0 mg/dL (<2.0) 11/24/21 13:29 Ur Leukocyte Esterase Negative (Negative) 11/24/21 13:29 Urine Opiates Screen Not Detected (NotDetected) 11/24/21 13:29 Ur Oxycodone Screen Not Detected (NotDetected) 11/24/21 13:29 Urine Methadone Screen Not Detected (NotDetected) 11/24/21 13:29 Ur Propoxyphene Screen Not Detected (NotDetected) 11/24/21 13:29 Ur Barbiturates Screen Not Detected (NotDetected) 11/24/21 13:29 U Tricyclic Antidepress Not Detected (NotDetected) 11/24/21 13:29 Ur Phencyclidine Scrn Not Detected (NotDetected) 11/24/21 13:29 Ur Amphetamines Screen Not Detected (NotDetected) 11/24/21 13:29 U Methamphetamines Scrn Not Detected (NotDetected) 11/24/21 13:29 U Benzodiazepines Scrn Not Detected (NotDetected) 11/24/21 13:29 Urine Cocaine Screen Not Detected (NotDetected) 11/24/21 13:29 U Marijuana (THC) Screen Detected (NotDetected) H 11/24/21 13:29 Coronavirus (PCR) Not Detected (Not Detectd) 11/24/21 13:20 Vital Signs Temp 97.7 F 11/27/21 06:37 Pulse 99 11/27/21 09:05 Resp 14 11/27/21 06:37 BP 111/71 11/27/21 09:05 Pulse Ox 98 11/24/21 12:40 Patient Condition at Discharge: Stable Plan - Discharge Summary Discharge Rx Participant: No New Discharge Prescriptions: New busPIRone HCl [Buspar] 10 mg PO BID 30 Days tab traZODone HCL [Desyrel] 100 mg PO HS 30 Days tab Bacitracin Zinc/Polymyxin B [Bacitracin-Polymyxin Ointment] 1 applic TOPICAL BID #1 gm Nicotine 14Mg/24Hr Patch [Habitrol] 1 patch TRANSDERM DAILY 14 Days patch lamoTRIgine [LaMICtal] 50 mg PO BID 30 Days tab Continue Spironolactone 100 mg PO DAILY estradioL [estradioL (Twice Weekly) 0.1 mg Patch] 2 patch TRANSDERM WESA Discontinued Sertraline [Zoloft] 50 mg PO HS Discharge Medication List Spironolactone 100 mg PO DAILY 04/16/21 [History] estradioL [estradioL (Twice Weekly) 0.1 mg Patch] 2 patch TRANSDERM WESA 11/19/21 [History] Bacitracin Zinc/Polymyxin B [Bacitracin-Polymyxin Ointment] 1 applic TOPICAL BID #1 gm 11/27/21 [Rx] Nicotine 14Mg/24Hr Patch [Habitrol] 1 patch TRANSDERM DAILY 14 Days patch 11/27/21 [Rx] busPIRone HCl [Buspar] 10 mg PO BID 30 Days tab 11/27/21 [Rx] lamoTRIgine [LaMICtal] 50 mg PO BID 30 Days tab 11/27/21 [Rx] traZODone HCL [Desyrel] 100 mg PO HS 30 Days tab 11/27/21 [Rx] Follow up Appointment(s)/Referral(s): Jenelle Dacosta MD [Primary Care Provider] - 1-2 days Activity/Diet/Wound Care/Special Instructions: Activity and diet as tolerated. Avoid the use of street drugs and alcohol. Take all medications as prescribed. When you are in need of refills on your medications please contact your medical provider and/or outpatient psychiatrist to have this done. Please go to scheduled outpatient appointment for aftercare treatment. If symptoms return or become worse, call the crisis line at and/or go to the nearest emergency room for evaluation Discharge Disposition: HOME SELF-CARE
== END 2021-11-27 14:20 | disposition home or self-care (01) | DRG 885 ==
LOC: EC 12:29 → 3MHU 18:33
PROVIDERS: ADMIT Psychiatry & Neurology Psychiatry; ATTEND Psychiatry & Neurology Psychiatry
DX: F31.30 Bipolar disorder, current episode depressed, mild or moderate severity, unspecified (principal); R45.851 Suicidal ideations; S71.111A Laceration without foreign body, right thigh, initial encounter; S31.113A Laceration without foreign body of abdominal wall, right lower quadrant without penetration into peritoneal cavity, initial encounter; Z20.822 Contact with and (suspected) exposure to COVID-19; E16.2 Hypoglycemia, unspecified; F10.10 Alcohol abuse, uncomplicated; F17.290 Nicotine dependence, other tobacco product, uncomplicated; F12.10 Cannabis abuse, uncomplicated; F41.9 Anxiety disorder, unspecified; G47.00 Insomnia, unspecified; Z79.899 Other long term (current) drug therapy; Z90.49 Acquired absence of other specified parts of digestive tract; Z91.51 Personal history of suicidal behavior; Z71.41 Alcohol abuse counseling and surveillance of alcoholic; X78.9XXA Intentional self-harm by unspecified sharp object, initial encounter
CPT/HCPCS: 80053; 80306; 81003; 82075; 83036; 84443; 85025; 87635; 99285